=== PATIENT | male | born 1960 | race Asian ===

== ENCOUNTER 2023-11-17 11:36 | Emergency (ER) | payer MEDICARE, SELFPAY ==
--- NOTE | 2023-11-17 11:40 | ED.LOWEXIN ---
HPI - Extremity Injury (Lower) General Chief Complaint: Extremity Problem,Nontraumatic Stated Complaint: Right Ankle Pain Patient is a 63-year-old male who presents to the [facility] with complaints of right foot pain and redness that has been present for approximately 1 week. Patient denies injury to the foot. Denies wound to the foot. Patient states that he had similar symptoms 6 months ago when he was diagnosed with gout. Source: patient and RN notes reviewed Mode of arrival: ambulatory Limitations: no limitations Related Data Home Medications Medication Instructions Recorded Confirmed dexamethasone 4 mg tablet 4 mg PO DAILY 11/17/23 11/17/23 oxycodone 5 mg tablet 5 mg PO DIRECTED 11/17/23 11/17/23 prochlorperazine maleate 10 mg 10 mg PO DIRECTED 11/17/23 11/17/23 tablet Allergies Allergy/AdvReac Type Severity Reaction Status Date / Time No Known Allergies Allergy Unverified 11/17/23 11:48 Review of Systems Review of Systems: CONSTITUTIONAL: Denies fever, chills, or sweats. EYES: Denies visual changes, redness, or discharge. ENT: Denies otalgia and sore throat CARDIOVASCULAR: Denies chest pain, palpitations, or edema. RESPIRATORY: Denies cough or dyspnea. GASTROINTESTINAL: Denies abdominal pain, nausea, vomiting, or diarrhea. GENITOURINARY: Denies dysuria or hematuria. SKIN: Denies rash or itching. MUSCULOSKELETAL: Denies back pain or myalgia. Reports right foot pain. NEUROLOGIC: Denies headache, numbness, or weakness. Pertinent positives per HPI. PMFSH Comments At the time of my signature, I reviewed and agree with the nursing past medical, surgical, social, and family history. There is no relevant family history pertinent to the patient complaint. Exam Narrative: GENERAL: This is a well-nourished, well-developed patient, in no apparent distress. HEAD: normocephalic, atraumatic. EYES: Sclera clear/white. Vision is grossly intact. EARS: External ears normal. Hearing grossly intact. NOSE: External nose normal with no obvious nasal discharge, nares without redness, no rhinorrhea. THROAT: Mucous membranes moist, posterior pharynx clear. NECK: Neck supple, non-tender without lymphadenopathy, masses or thyromegaly. CARDIOVASCULAR: Regular rate and rhythm without murmurs, gallops, or rubs. RESPIRATORY: Clear to auscultation. Breath sounds equal bilaterally. No wheezes, rales, or rhonchi. GASTROINTESTINAL: Abdomen soft, non-tender, nondistended. Bowel sounds are active. No hepato-splenomegaly, or palpable masses. No guarding. SKIN: warm, intact with no suspicious lesions or rash, good texture and turgor. NEURO: awake, alert, and oriented to person, place and time. There were no obvious focal neurologic abnormalities. EXTREMITIES: No clubbing, cyanosis, or edema. Right foot tenderness at the base of the first metatarsal. There is erythema noted. Neurovascular status intact. Sensation intact. Course Course Level of Care: Express Care Visit Vital Signs Vital signs: Vital Signs Temperature 97.7 F 11/17/23 11:45 Pulse Rate 80 11/17/23 11:45 Respiratory Rate 16 11/17/23 11:45 Blood Pressure 115/82 11/17/23 11:45 Pulse Oximetry 99 11/17/23 11:45 Oxygen Delivery Room Air 11/17/23 11:45 Temperature 97.7 F 11/17/23 11:51 Pulse Rate 80 11/17/23 11:51 Respiratory Rate 16 11/17/23 11:51 Blood Pressure 115/82 11/17/23 11:51 Pulse Oximetry 99 11/17/23 11:51 Oxygen Delivery Room Air 11/17/23 11:51 Reviewed MDM - Extremity Injury (Lower) MDM Narrative Medical decision making narrative: Ice to the area 15-20 minutes 4-6 times a day for two to three days Minimize activities that aggravate the condition Elevate above heart as much as possible to reduce swelling You may take over the counter tylenol and ibuprofen as needed for pain Take steroids as prescribed Follow up with your primary care provider for further evaluation and treatment as soon as possibl
[2023-11-17 11:45] VITALS: BP 115/82; PULSE 80; RESP 16; TEMP 36.5; O2SAT 99
[2023-11-17 11:51] VITALS: BP 115/82; PULSE 80; RESP 16; TEMP 36.5; O2SAT 99
[2023-11-17] MEDS: methylPREDNISolone SOD SUCC 125 MG VIAL 80 MG IM (12:13)
== END 2023-11-17 12:20 | disposition home or self-care (01) ==
PROVIDERS: Emergency Provider Nurse Practitioner
DX: M10.9 Gout, unspecified (principal)
CPT/HCPCS: 96372; 99203; G0463; J2919

== ENCOUNTER 2024-01-13 11:39 | Emergency (ER) | payer OTHER, SELFPAY ==
[2024-01-13 11:49] VITALS: BP 113/88; PULSE 97; RESP 16; TEMP 37; O2SAT 100
--- NOTE | 2024-01-13 11:50 | ED.GENADULT ---
HPI - General Adult General Chief complaint: Skin/Abscess/Foreign Body Stated complaint: abscess Time Seen by Provider: 01/13/24 11:50 Source: patient, RN notes reviewed and old records reviewed Mode of arrival: ambulatory Limitations: no limitations History of Present Illness HPI narrative: patient presents to [facility] accompanied by his spouse. An care giver was used. Patient is complaining of 3 week history of left ear pain and drainage. he is also complaining about a pustule to the left rear scalp. This has been present for less than 1 week. He denies any active drainage from this site. He denies any fever, chills, sweats. Related Data Home Medications Medication Instructions Recorded Confirmed dexamethasone 4 mg tablet 4 mg PO DAILY 11/17/23 11/17/23 oxycodone 5 mg tablet 5 mg PO DIRECTED 11/17/23 01/13/24 prochlorperazine maleate 10 mg 10 mg PO DIRECTED 11/17/23 11/17/23 tablet Allergies Allergy/AdvReac Type Severity Reaction Status Date / Time No Known Allergies Allergy Unverified 11/17/23 11:48 Review of Systems Review of Systems: All systems reviewed & are unremarkable except as noted in HPI and below Constitutional: Constitutional: Reports no additional constitutional complaints ENT: Reports system reviewed and no additional complaints, except as documented, Reports as per HPI, Reports ear discharge and Reports otalgia Cardiovascular: Cardiovascular: Reports no additional cardiovascular complaints Respiratory: Respiratory: Reports no additional respiratory complaints Gastrointestinal: Gastrointestinal: Reports no additional gastrointestinal complaints Integumentary/Breasts: Skin/Breast: Reports other ( Small tender pustule to scalp) PMFSH Comments At the time of my signature, I reviewed and agree with the nursing past medical, surgical, social, and family history. There is no relevant family history pertinent to the patient complaint. Exam Const: General: cooperative, no acute distress, alert and awake Orientation/consciousness: oriented to person, oriented to place and oriented to time HENMT: Head: normal to inspection and other ( pustule to scalp, approximately 0.5 cm. No active drainage or induration) Ears: TM normal on the right, left TM abnormal ( perforation of TM and drainage noted to left middle ear) and no external ear abnormalities Mouth: Yes Normal oral and palatal mucosa present and Yes lip normal Throat: posterior oropharynx normal Resp: Effort & Inspection: normal respiratory effort and able to speak in complete sentences Auscultation: clear to auscultation bilaterally, no crackles, no rales, no rhonchi and no wheezes Cardio: Palpation: normal PMI Rate: regular rate Rhythm: regular rhythm Heart sounds: S1 normal heart sound present and S2 normal heart sound present Neuro: General: oriented to person, oriented to place and oriented to time Cranial nerves: Yes CN's II-XII intact bilaterally Psych: Appearance: grossly normal Thought process: Normal thought process present Insight: Good insight present (Psych) Judgement: Good judgement present (Psych) Course Course Level of Care: Express Care Visit Vital Signs Vital signs: Vital Signs Temperature 98.6 F 01/13/24 11:49 Pulse Rate 97 01/13/24 11:49 Respiratory Rate 16 01/13/24 11:49 Blood Pressure 113/88 01/13/24 11:49 Pulse Oximetry 100 01/13/24 11:49 Temperature 98.6 F 01/13/24 11:49 Pulse Rate 97 01/13/24 11:49 Respiratory Rate 16 01/13/24 11:49 Blood Pressure 113/88 01/13/24 11:49 Pulse Oximetry 100 01/13/24 11:49 Reviewed Medical Decision Making MDM Narrative Medical decision making narrative: significant infection noted to the left ear. Patient instructed to follow with primary care provider regarding this, keep liquids out of the area on till follow-up. Emergency department with new or worsening symptoms. Stable for outpatient treatment with Aug
== END 2024-01-13 12:31 | disposition home or self-care (01) ==
PROVIDERS: Emergency Provider Nurse Practitioner Family
DX: L08.9 Local infection of the skin and subcutaneous tissue, unspecified (principal); H66.012 Acute suppurative otitis media with spontaneous rupture of ear drum, left ear; C76.0 Malignant neoplasm of head, face and neck; Z79.60 Long term (current) use of unspecified immunomodulators and immunosuppressants
CPT/HCPCS: 99213; G0463